=== PATIENT | female | born 1945 | race Caucasian/White ===

== ENCOUNTER 2018-06-17 07:19 | Emergency (ER) | payer OTHER ==
[~2018-06-17] VITALS: Ht 157.5 cm; Wt 63.5 kg
[~2018-06-17 07:19] MED LIST: ALBU.083IS IH; ASCO500 PO; ASPI325 PO; ASPI81CH PO; ASPI81EC PO; ATEN100 PO; ATEN50 PO; ATOR40TA PO; CHOLEST OFF; CIPR500 PO; CLOP75 PO; CYAN500 PO; ESTNOR PO; ESTR1 PO; FISH1000 PO; FLUSAL5005 IH; HYDACE5 PO; HYDCHL25 PO; LISHYD2025 PO; LORA1 PO; LOVA40 PO; NIFE30ER PO; NISO10ER PO; NITR.4SL SL; NITR100CA PO; Nifedical Xl30 MG PO; OMEP20ER PO; OXYACE5T PO; OXYB5 PO; PROM25 PO; RANI150 PO; RXNITR.4; RXPROM25 PO; SIMBICORT; SIMV80 PO; TOCO400 PO; VALA500 PO; WARF5 PO
[2018-06-17 08:11] LABS: BASOPHILS ABSOLUTE AUTO 0.04 K/mm3 (0.00-0.23); BASOPHILS PERCENT AUTO 0 % (0-2); EOSINOPHILS ABSOLUTE AUTO 0.06 K/mm3 (0.00-0.68); EOSINOPHILS PERCENT AUTO 1 % (0-6); Hematocrit 43.1 % (33.0-51.0); IMMATURE GRAN ABSOLUTE AUTO 0.02 K/mm3 (0.00-0.10); IMMATURE GRAN PERCENT AUTO 0 % (0-1); LYMPHOCYTES ABSOLUTE AUTO 0.85 K/mm3 (0.84-5.20); LYMPHOCYTES PERCENT AUTO 8 % (21-46); MONOCYTES ABSOLUTE AUTO 0.74 K/mm3 (0.16-1.47); MONOCYTES PERCENT AUTO 7 % (4-13); Mean Corpuscular HGB 29.6 pg (26.0-34.0); Mean Corpuscular HGB Conc 32.5 g/dL (31.5-36.5); Mean Corpuscular Volume 91 fL (80-100); Mean Platelet Volume 10.3 fL (9.1-12.4); NEUTROPHILS ABSOLUTE AUTO 8.96 K/mm3 (1.96-9.15); NEUTROPHILS PERCENT AUTO 84 % (41-73); Platelet Count 212 K/mm3 (150-400); RDW Coefficient Variation 13.2 % (11.7-14.2); RDW Standard Deviation 43.7 fL (35.1-46.3); Red Blood Cell Count 4.73 M/mm3 (3.80-5.20); White Blood Cell Count 10.67 K/mm3 (4.00-11.30)
[2018-06-17 08:27] LABS: Alanine Aminotransfer (ALT/SGP 34 U/L (12-78); Albumin, Blood 3.4 g/dL (3.4-5.0); Albumin/Globulin Ratio 0.9 (0.8-1.8); Alk Phos 89 U/L (50-136); Anion Gap 6 mmol/L (6-16); Aspartate Aminotrans (AST/SGOT 23 U/L (12-37); Bilirubin, Total 0.6 mg/dL (0.1-1.0); Blood Urea Nitrogen 14 mg/dL (8-24); Bun/Creatinine Ratio 20.1 (12.0-20.0); CO2, Blood 25 mmol/L (21-32); Calcium, Blood 8.8 mg/dL (8.5-10.1); Chloride, Blood 110 mmol/L (98-108); Globulin, Blood 3.7 g/dL (2.2-4.0); Glomerular Filtration Rate >60 (60-); Glucose, Blood 109 mg/dL (70-99); Sodium, Blood 141 mmol/L (136-145); Total Protein, Blood 7.1 g/dL (6.4-8.2); Troponin I <0.015 ng/mL (0.000-0.040)
[2018-06-17] MEDS ORDERED: Prednisone10 MG PO (10:12)
[2018-06-17] MEDS ORDERED: Amoxicillin500 MG PO (10:12)
[2018-06-17] MEDS ORDERED: ALBU3IS INH (10:12)
== END 2018-06-17 11:05 | disposition home or self-care (01) ==
LOC: ER 07:19
PROVIDERS: Physician Assistant
DX: J44.1 Chronic obstructive pulmonary disease with (acute) exacerbation (principal); J01.90 Acute sinusitis, unspecified; I25.2 Old myocardial infarction; Z88.1 Allergy status to other antibiotic agents; Z88.7 Allergy status to serum and vaccine; Z79.899 Other long term (current) drug therapy; Z79.82 Long term (current) use of aspirin; Z79.01 Long term (current) use of anticoagulants
CPT/HCPCS: 36415; 70450; 71046; 80053; 84484; 85025; 93005; 93010; 94640; 96374; 99285-25; J2920

== ENCOUNTER 2018-12-05 08:13 | Observation (INO) | payer OTHER ==
[~2018-12-05] VITALS: Ht 162.6 cm; Wt 63.0 kg
[~2018-12-05 08:13] MED LIST changes: +ALBU3IS INH; +Amoxicillin500 MG PO; +Prednisone10 MG PO
[2018-12-05 09:17] LABS: BASOPHILS ABSOLUTE AUTO 0.06 K/mm3 (0.00-0.23); BASOPHILS PERCENT AUTO 0 % (0-2); EOSINOPHILS ABSOLUTE AUTO 0.01 K/mm3 (0.00-0.68); EOSINOPHILS PERCENT AUTO 0 % (0-6); Hematocrit 45.5 % (33.0-51.0); Hemoglobin 14.5 g/dL (11.5-16.0); IMMATURE GRAN ABSOLUTE AUTO 0.03 K/mm3 (0.00-0.10); IMMATURE GRAN PERCENT AUTO 0 % (0-1); LYMPHOCYTES ABSOLUTE AUTO 0.63 K/mm3 (0.84-5.20); LYMPHOCYTES PERCENT AUTO 4 % (21-46); MONOCYTES ABSOLUTE AUTO 0.92 K/mm3 (0.16-1.47); MONOCYTES PERCENT AUTO 6 % (4-13); Mean Corpuscular HGB 29.3 pg (26.0-34.0); Mean Corpuscular HGB Conc 31.9 g/dL (31.5-36.5); Mean Corpuscular Volume 92 fL (80-100); Mean Platelet Volume 10.2 fL (9.1-12.4); NEUTROPHILS ABSOLUTE AUTO 12.62 K/mm3 (1.96-9.15); NEUTROPHILS PERCENT AUTO 89 % (41-73); Platelet Count 257 K/mm3 (150-400); RDW Coefficient Variation 14.3 % (11.7-14.2); RDW Standard Deviation 48.5 fL (35.1-46.3); Red Blood Cell Count 4.95 M/mm3 (3.80-5.20); White Blood Cell Count 14.27 K/mm3 (4.00-11.30)
[2018-12-05 09:23] LABS: Source, Urine Catheter
[2018-12-05 09:33] LABS: Bilirubin, Urine Neg (Neg); Blood, Urine 1+ (Neg); Glucose Qualitative, Urine Neg (Neg); Ketones, Urine Neg (Neg); Leukocyte Esterase, Urine Neg (Neg); Nitrite, Urine Neg (Neg); Protein, Urine 2+ (Neg); Specific Gravity, Urine 1.015 (1.003-1.022); Urobilinogen, Urine NORM (Normal); pH, Urine 6.5 (5.0-8.0)
[2018-12-05 09:39] LABS: Alanine Aminotransfer (ALT/SGP 37 U/L (12-78); Albumin, Blood 3.6 g/dL (3.4-5.0); Albumin/Globulin Ratio 0.9 (0.8-1.8); Alk Phos 87 U/L (50-136); Anion Gap 10 mmol/L (6-16); Aspartate Aminotrans (AST/SGOT 28 U/L (12-37); Bilirubin, Total 0.7 mg/dL (0.1-1.0); Blood Urea Nitrogen 17 mg/dL (8-24); Bun/Creatinine Ratio 20.9 (12.0-20.0); CO2, Blood 27 mmol/L (21-32); Calcium, Blood 9.3 mg/dL (8.5-10.1); Chloride, Blood 106 mmol/L (98-108); Creatinine, Blood 0.81 mg/dL (0.40-1.00); Glomerular Filtration Rate >60 (60-); Glucose, Blood 133 mg/dL (70-99); Potassium, Blood 4.4 mmol/L (3.5-5.5); Sodium, Blood 143 mmol/L (136-145); Total Protein, Blood 7.6 g/dL (6.4-8.2); Troponin I 0.164 ng/mL (0.000-0.040)
[2018-12-05 09:44] LABS: Appearance, Urine Clear (Clear); Color, Urine Yellow (P-Yellow)
[2018-12-05 09:49] LABS: Bacteria Few /hpf; Squamous Epithelial Cells Rare /hpf (Few); White Blood Cells, Urine Rare /hpf (0-5)
[2018-12-05 09:50] LABS: Amorphous Mod ({null, 0-Heavy})
[2018-12-05 09:51] LABS: Red Blood Cells, Urine 0-2 /hpf (0-2)
[2018-12-05] MEDS ORDERED: GAVILAX17 GM PO (10:13)
[2018-12-05] MEDS ORDERED: ACET325 PO (10:14)
[2018-12-05] MEDS ORDERED: Biscolax10 MG PR (10:14)
[2018-12-05] MEDS ORDERED: ALBU3IS NEB (10:15)
[2018-12-05] MEDS ORDERED: GUAI600T33 PO (10:15)
[2018-12-05] MEDS ORDERED: ZYRTEC10 M1 PO (10:16)
[2018-12-05] MEDS ORDERED: SENEXON-S TABL1 EACH PO (13:33)
[2018-12-05] MEDS ORDERED: Calmoseptine Oi71 GM TOP (13:34)
[2018-12-05] MEDS ORDERED: AKWA Tears15 ML BOTHEYES (13:34)
[2018-12-05] MEDS ORDERED: HYDCOR2.5C TOP (13:35)
[2018-12-05] MEDS ORDERED: Enema133 M1 PR (13:36)
[2018-12-05] MEDS ORDERED: Milk Of Ma400 MG/5 M PO (13:37)
[2018-12-05] MEDS ORDERED: ALUM-MAG HYDRO360 ML PO (13:39)
[2018-12-05] MEDS ORDERED: BISM87SU PO (13:40)
[2018-12-05] MEDS ORDERED: ZYRTEC10 M2 PO (14:58)
[2018-12-06 05:22] LABS: BASOPHILS ABSOLUTE AUTO 0.03 K/mm3 (0.00-0.23); BASOPHILS PERCENT AUTO 0 % (0-2); EOSINOPHILS ABSOLUTE AUTO 0.16 K/mm3 (0.00-0.68); EOSINOPHILS PERCENT AUTO 2 % (0-6); Hematocrit 37.2 % (33.0-51.0); Hemoglobin 11.8 g/dL (11.5-16.0); IMMATURE GRAN ABSOLUTE AUTO 0.05 K/mm3 (0.00-0.10); IMMATURE GRAN PERCENT AUTO 1 % (0-1); LYMPHOCYTES ABSOLUTE AUTO 1.21 K/mm3 (0.84-5.20); LYMPHOCYTES PERCENT AUTO 13 % (21-46); MONOCYTES PERCENT AUTO 10 % (4-13); Mean Corpuscular HGB 29.9 pg (26.0-34.0); Mean Corpuscular HGB Conc 31.7 g/dL (31.5-36.5); Mean Corpuscular Volume 94 fL (80-100); Mean Platelet Volume 10.5 fL (9.1-12.4); NEUTROPHILS ABSOLUTE AUTO 7.23 K/mm3 (1.96-9.15); NEUTROPHILS PERCENT AUTO 75 % (41-73); Platelet Count 199 K/mm3 (150-400); RDW Coefficient Variation 14.5 % (11.7-14.2); RDW Standard Deviation 50.6 fL (35.1-46.3); Red Blood Cell Count 3.94 M/mm3 (3.80-5.20); White Blood Cell Count 9.68 K/mm3 (4.00-11.30)
[2018-12-06 05:56] LABS: Alanine Aminotransfer (ALT/SGP 24 U/L (12-78); Albumin, Blood 2.7 g/dL (3.4-5.0); Albumin/Globulin Ratio 0.8 (0.8-1.8); Alk Phos 64 U/L (50-136); Anion Gap 6 mmol/L (6-16); Aspartate Aminotrans (AST/SGOT 14 U/L (12-37); Bilirubin, Total 0.8 mg/dL (0.1-1.0); Blood Urea Nitrogen 10 mg/dL (8-24); Bun/Creatinine Ratio 12.8 (12.0-20.0); CO2, Blood 25 mmol/L (21-32); Calcium, Blood 8.5 mg/dL (8.5-10.1); Chloride, Blood 112 mmol/L (98-108); Creatinine, Blood 0.78 mg/dL (0.40-1.00); Globulin, Blood 3.4 g/dL (2.2-4.0); Glomerular Filtration Rate >60 (60-); Glucose, Blood 118 mg/dL (70-99); Potassium, Blood 4.2 mmol/L (3.5-5.5); Sodium, Blood 143 mmol/L (136-145); Total Protein, Blood 6.1 g/dL (6.4-8.2)
--- NOTE | 2018-12-06 06:22 | NUR ---
SHIFT SUMMARY NO ACUTE CHANGES TO PRESENT THIS SHIFT. PT RESTED WELL MOST OF SHIFT, QUIETLY. PT WAS AWAKE FOR A WHILE AT HS, MAKING NOISE AND COUGHING TO CLEAR THROAT PERIODICALLY. PT SUCTIONED NEEDED A COUPLE OF TIMES EARLY INTO SHIFT, BUT THEN SEEMED TO BREATHE EASY W/O DIFFICULTY OR COUGHING. PT INCONTINENT OF URINE; VOIDS HEAVILY. SOME REDNESS IN THERESA AREA. PT HAS BEEN NONVERBAL, ONLY MAKING NOISE BUT NO WORDS. HX OF ALZ DEMENTIA, LIVING AT [facility]. PER SHIFT REPORT, PT IS W/C BOUND BUT NOT ABLE TO TOLERATE BEING IN A CHAIR FOR LONG PERIODS OF TIME. NPO PER SPEECH EVAL UNTIL PT IS MORE AWAKE AND ABLE TO FOLLOW DIRECTIONS. NORMALLY ON A PUREED DIET R/T HAVING NO TEETH. IVF'S INFUSING PER [facility]. PT TAKEN DOWN TO IMAGING FOR CXR THIS AM. PT VERY STIFF AND RIDGED WHEN TRYING TO MOVE HER. BED ALARM ON FOR SAFETY. WILL MONITOR.
--- NOTE | 2018-12-06 16:56 | NUR ---
PT IS NOT ALERT OR ORIENTED. SHE IS NON-VERBAL AT BASELINE. SHE DIDN'T PASS THE SWALLOW EVALUATION THIS MORNING. THERE IS SUCTION AT THE BEDSIDE FOR ORAL SECRETIONS. THE PT OFTEN SWALLOWS SECRETIONS BEFORE SUCTION CAN BE IMPLEMENTED. SHE HAS A 22G IN HER LEFT ARM, WITH IV FLUIDS RUNNING AT 100 MLS/HR. THE PLAN IS FOR HER TO BE DISCHARGED TO [facility] IN [place] WITH [facility] IN THE MORNING.
--- NOTE | 2018-12-07 04:23 | NUR ---
SHIFT SUMMARY NO ACUTE CHANGES TO PRESENT THIS SHIFT. PT MAKING NOISE AGAIN AT START OF SHIFT AND BRIEFLY ONCE DURING THE NIGHT, BUT OTHERWISE RESTED QUIETLY THE REMAINING HOURS OF SHIFT. PT DID NOT COUGH OR CHOKE ON SECRETIONS TONIGHT NEAR MUCH MONDAY NIGHT. DID NOT REQUIRE ANY SUCTIONING TO PRESENT. REMAINS COMPLETELY UNRESPONSIVE TO VERBAL COMMANDS. STIFFENS AND MAKES NOISE TO NOXIOUS STIMULI. INCONTINENT OF URINE. VOIDS HEAVILY AT TIMES. IVF'S INFUSING PER EMAR, WELL IV ABX. PT TO RETURN TO [place] TODAY ON HOSPICE. CALL LT IN REACH. BED ALARM ON FOR SAFETY. WILL MONITOR.
--- NOTE | 2018-12-07 06:43 | NUR ---
PT PICKING AT [facility] THIS AM WITH EYES CLOSED AND FOUND IV TO LW. PT MESSED WITH DRSG CAUSING IV TO START LEAKING. PT VERY STIFF AND DIFFICULT TO OBTAIN IV STATUS. PT TO BE GOING HOME ON HOSPICE THIS AM.
--- NOTE | 2018-12-07 09:12 | NUR ---
REPORT CALLED TO [facility] 12/07/18 AT 0913.
[2018-12-07] MEDS ORDERED: COMBIVENT RESPIM4 GM INH (11:03)
[2018-12-07] MEDS ORDERED: AMOCLA250S (11:05)
--- NOTE | 2018-12-07 13:58 | NUR ---
IV REMOVED. D/C PACKET SENT WITH PT FOR FACILITY. REPORT CALLED TO [facility] THIS AM. PT LEFT AT 1330 VIA [facility] WITH TRANSPORT.
== END 2018-12-07 13:47 | disposition home or self-care (01) ==
LOC: ER 08:13 → MEDS 08:14 → ENPENDDIS 12-07 09:37 → MEDS 12-07 13:47
PROVIDERS: Emergency Medicine; ADMIT Family Medicine
DX: R06.00 Dyspnea, unspecified (principal); R09.02 Hypoxemia; G30.9 Alzheimer's disease, unspecified; F02.80 Dementia in other diseases classified elsewhere, unspecified severity, without behavioral disturbance, psychotic disturbance, mood disturbance, and anxiety; G93.40 Encephalopathy, unspecified; R77.8 Other specified abnormalities of plasma proteins; I10 Essential (primary) hypertension; J44.9 Chronic obstructive pulmonary disease, unspecified; I25.10 Atherosclerotic heart disease of native coronary artery without angina pectoris; Z95.5 Presence of coronary angioplasty implant and graft; I25.2 Old myocardial infarction; K21.9 Gastro-esophageal reflux disease without esophagitis; Z87.891 Personal history of nicotine dependence; Z88.1 Allergy status to other antibiotic agents; Z88.7 Allergy status to serum and vaccine; Z79.899 Other long term (current) drug therapy
CPT/HCPCS: 36415; 71045; 71046; 80053; 81001; 83605; 84484; 85025; 87040; 92610; 93005; 93010; 94640; 94644; 94760; 96361; 96365; 96366; 96367; 96372; 96376; 99285-25; G0378; J0295; J1650; J1956; J7040; J7120; P9612